=== PATIENT | male | born 1945 | race African-American/Black ===

== ENCOUNTER 2017-08-11 15:12 | Emergency (ER) | payer SELFPAY ==
--- NOTE | 2017-08-11 15:22 | ED Physician Documentation ---
General Adult - HISTORIAN Historian: patient - HPI Stated Complaint: sob Chief Complaint: General Adult Onset: hours Timing: still present Severity: moderate Further Comments: yes (Pt is a 71 yo male with dyspnea. Pt was sitting watching tv when he became sob. Pt had been admitted to [facility] on 07-29-17 for [place] with stent placement and renal failure. Pt was d/c'd from [facility] to [place] and d/c'd from [place] to home 6 days ago. Pt denied chest pain, n/v, diaphoresis. He c/o sob only.) - ROS CONST: no problems EYES/ENT: none CVS/RESP: shortness of breath GI/: none MS/SKIN/LYMPH: none - PAST HX Past History: CHF, other ([place] 07-29-17 with stent placement; HLD; anemia NOS; chronic renal insufficiency; hyperglycemia. ) Allergies/Adverse Reactions: Allergies Allergy/AdvReac Type Severity Reaction Status Date / Time No Known Allergies Allergy Verified 08/11/17 15:36 Home Medications: Ambulatory Orders Medication Instructions Recorded Aspirin [Tomasz] 81 mg PO DAILY 07/18/17 Atorvastatin Calcium 80 mg PO HS 08/11/17 Carvedilol [Coreg] 6.25 mg PO BID 08/11/17 Clopidogrel Bisulfate [Plavix] 75 mg PO QD 08/11/17 Ergocalciferol (Vitamin D2) 1,000 unit PO DAILY 08/11/17 [Vitamin D-2] Ergocalciferol (Vitamin D2) 50,000 unit PO WEEK 08/11/17 [Vitamin D2] - SOCIAL HX Smoking History: quit greater than 1 year (quit age 48) Alcohol Use: other (former heavy drinker) - FAMILY HX Family History: No - VITAL SIGNS Vital Signs: Vital Signs Temp Pulse Resp BP Pulse Ox 150/97 07/19/17 14:00 - REVIEWED ASSESSMENTS Nursing Assessment Reviewed: Yes Vitals Reviewed: Yes Progress - Progress Progress: CXR: Findings: Single view of the chest demonstrates a prominent cardiac and mediastinal silhouette. Bibasilar parenchymal haziness, right greater than left. Blunting of the bases bilaterally. Osseous structures are appropriate for age. Impression: Bibasilar infiltrate/effusions. Cardiomegaly. Duoneb HFN in ER Pt much improved and comfortable after starting 3L NC O2 and after Duoneb. Freqent PVC's resolved. d/w pcp. Treatment with lasix has been unsuccessful in past--raised creatinine and did not diurese pt. Transfer to [facility] cardiology Dr. Hernandez. - EKG/XRAY/CT EKG: NSR (HR=96; PVC's, artifact) ED Results Lab/Radiology - Orders Orders: ED Orders Category Date Time Status Continuous EKG monitoring Q30M Care 08/11/17 15:14 Active Continuous Pulse Oximetry Q30M Care 08/11/17 15:[address] IV Lock 1T Care 08/11/17 15:14 Active CHEST 1 VIEW [RAD] Stat Exams 08/11/17 15:14 Ordered CBC/PLATELET/DIFF Routine Lab 08/11/17 15:14 Ordered CKMB Stat Lab 08/11/17 Ordered CMP Routine Lab 08/11/17 15:14 Ordered CREATINE KINASE Routine Lab 08/11/17 15:14 Ordered D DIMER Stat Lab 08/11/17 Ordered NT-proBNP Stat Lab 08/11/17 Ordered TROPONIN I (cTnI) Stat Lab 08/11/17 Ordered Oxygen Daily Oxygen 08/11/17 15:15 Ordered EKG WITH COMPARISON Stat Ther 08/11/17 15:14 Ordered General Adult Physical Exam - PHYSICAL EXAM GENERAL APPEARANCE: moderate distress EENT: pharynx normal NECK: normal inspection, supple RESPIRATORY: wheezes, rales, other (prolonged expiratory phase) CVS: frequent extrasystoles ABDOMEN: soft, no organomegaly, normal bowel sounds BACK: normal inspection, no CVA tenderness SKIN: warm/dry, normal color EXTREMITIES: non-tender, normal range of motion, no edema NEURO: oriented X3, motor nml, sensation nml Discharge Clincal Impression: Bibasilar infiltrates/effusions, Chronic renal insufficiency, stage III ( moderate), Troponin elevated above normal range Congestive heart failure Qualifiers: Congestive heart failure type: unspecified congestive heart failure type Congestive heart failure chronicity: unspecified congestive heart failure chronicity Qualified Code(s): I50.9 - Heart failure, unspecified Referrals: Primary Doctor,No [Primary Care Provider] - Condition: Stable Disposition: XFER [facility] Decision to Admit: NO Decision Time: 16:41
[2017-08-11] MEDS ORDERED: IPRATROPIUM/ALBUTEROL SULFATE 3 ML AMPUL.NEB NEB ONE (15:28)
[2017-08-11 15:31] LABS: BASOPHILS % 0.6 (0.0-1.5); EOSINOPHILS % 6.7 % (0.0-6.8); MEAN CORPUSCULAR HEMOGLOBIN 28.8 pg (28.0-34.0); MEAN CORPUSCULAR VOLUME 94.5 fl (80.0-100.0); MONOCYTES % 6.6 % (0.0-11.0); NEUTROPHILS # 4.4 # k/uL (1.4-7.7)
--- NOTE | 2017-08-11 16:03 | Diagnostic Imaging Report ---
JIA GRACE [facility] [address] [facility] [address] [place] [address]. [id number] Report Submission Date: Aug 11, 2017 3:46:17 PM [employer]ANCE SALES EXECUTIVE Patient Study Name: FÁTIMA BYNUM Date: Aug 11, 2017 3:27:54 PM [employer]ANCE SALES EXEC[employer]IVE Modality Type: CR Gender: M Description: CHEST : 41 Institution: [facility] Physician: JIA GRACE Examination: Portable chest History: Chest discomfort Comparison exam: 19 July 2017 Findings: Single view of the chest demonstrates a prominent cardiac and mediastinal silhouette. Bibasilar parenchymal haziness, right greater than left. Blunting of the bases bilaterally. Osseous structures are appropriate for age. Impression: Bibasilar infiltrate/effusions. Cardiomegaly. Electronically signed on Aug 11, 2017 3:46:17 PM INSURANCE SALES EXECUTIVE by: Joselito ALCOCER
[2017-08-11 18:17] VITALS: BP 138/91
== END 2017-08-11 18:12 | disposition short-term general hospital (02) ==
LOC: ED 15:12
DX: I50.9 Heart failure, unspecified (principal)
CPT/HCPCS: 71010; 80053; 82550; 82553; 83880; 84484; 85025; 85379; 94640; 94760; 99283; S1016

== ENCOUNTER 2017-08-18 13:57 | Outpatient (CLI) | payer SELFPAY ==
[2017-08-18 14:17] LABS: BASOPHILS % 0.6 (0.0-1.5); EOSINOPHILS % 8.4 % (0.0-6.8); MEAN CORPUSCULAR HEMOGLOBIN 28.8 pg (28.0-34.0); MEAN CORPUSCULAR VOLUME 92.6 fl (80.0-100.0); MONOCYTES % 7.3 % (0.0-11.0); NEUTROPHILS # 3.2 # k/uL (1.4-7.7)
[2017-08-18 14:35] LABS: eGFR (African) 24; eGFR (Non-African) 20
== END 2017-08-18 14:00 ==
LOC: LAB 13:57
PROVIDERS: ATTEND Family Medicine
DX: N17.9 Acute kidney failure, unspecified (principal); N18.4 Chronic kidney disease, stage 4 (severe); D64.9 Anemia, unspecified; R73.9 Hyperglycemia, unspecified
CPT/HCPCS: 36415; 80048; 83036; 85025

== ENCOUNTER 2017-09-08 14:05 | Outpatient (CLI) | payer OTHER ==
[2017-09-08 14:26] LABS: BASOPHILS % 0.2 (0.0-1.5); EOSINOPHILS % 4.2 % (0.0-6.8); MEAN CORPUSCULAR HEMOGLOBIN 28.5 pg (28.0-34.0); MEAN CORPUSCULAR VOLUME 99.6 fl (80.0-100.0); NEUTROPHILS # 2.8 # k/uL (1.4-7.7)
[2017-09-08 14:49] LABS: eGFR (African) 30; eGFR (Non-African) 25
== END 2017-09-08 14:06 ==
LOC: LAB 14:05
PROVIDERS: ATTEND Family Medicine
DX: N28.9 Disorder of kidney and ureter, unspecified (principal)
CPT/HCPCS: 36415; 80048; 85025

== ENCOUNTER 2017-09-23 14:33 | Outpatient (CLI) | payer OTHER | END 2017-09-23 14:35 | LOC: NEPHRO 14:33 | PROVIDERS: ATTEND Internal Medicine Nephrology | DX: I10 Essential (primary) hypertension (principal); E11.9 Type 2 diabetes mellitus without complications; I50.9 Heart failure, unspecified; I25.10 Atherosclerotic heart disease of native coronary artery without angina pectoris; N18.9 Chronic kidney disease, unspecified; N17.9 Acute kidney failure, unspecified | CPT/HCPCS: 99213 ==

== ENCOUNTER 2017-09-24 08:06 | Outpatient (CLI) | payer OTHER ==
[2017-09-24 09:29] LABS: eGFR (African) 33; eGFR (Non-African) 27
[2017-09-24 18:02] LABS: BASO % 0.5 % (0.0-1.5); EOS % 4.6 % (0.0-6.8); LYMPH ABS # 0.83 thou/uL (0.60-4.00); MCH. 28.8 pg (28.0-34.0); MCV 94.6 fL (80.0-100.0); MONOCYTE % 8.2 % (0.0-11.0); MONOCYTE ABS # 0.36 thou/uL (0.00-0.90); PLATELET COUNT 295 thou/uL (130-400)
== END 2017-09-24 08:07 ==
LOC: LAB 08:06
PROVIDERS: ATTEND Internal Medicine Nephrology
DX: I10 Essential (primary) hypertension (principal); E11.9 Type 2 diabetes mellitus without complications; I50.9 Heart failure, unspecified; I25.10 Atherosclerotic heart disease of native coronary artery without angina pectoris; N18.9 Chronic kidney disease, unspecified; N17.9 Acute kidney failure, unspecified
CPT/HCPCS: 36415; 80053; 83036; 83970; 84100; 85025

== ENCOUNTER 2017-09-30 12:28 | Outpatient (CLI) | payer OTHER | END 2017-09-30 12:40 | LOC: CARD 12:28 | PROVIDERS: ATTEND Internal Medicine Cardiovascular Disease | DX: R00.0 Tachycardia, unspecified (principal); I10 Essential (primary) hypertension; E78.5 Hyperlipidemia, unspecified; E11.9 Type 2 diabetes mellitus without complications; N18.4 Chronic kidney disease, stage 4 (severe); I42.9 Cardiomyopathy, unspecified | CPT/HCPCS: 99213 ==

== ENCOUNTER 2017-09-30 14:06 | Emergency (ER) | payer OTHER ==
--- NOTE | 2017-09-30 14:32 | ED Physician Documentation ---
General Adult - HISTORIAN Historian: patient - HPI Chief Complaint: General Adult Additional Information: 71yo male who was seen by Dr Stover today for follow-up of his CAD. Patient has been feeling well and voices not complaints. Patient was noted to have tachycardia in the 140s. EKG show some questionable p waves. Rate has been constant at 138-141 for several hours. Patient was sent to the ED for further evaluation and treatment. Onset: other (not sure) Timing: still present Severity: mild - ROS CONST: no problems. denies: fever, chills - PAST HX Past History: CHF, other (CAD, EDUCATIONAL INTERPRETER vasculitis) Other History: other (CKD stage 4) Surgeries/Procedures: none (brain bx for EDUCATIONAL INTERPRETER vasculitis, PCI with stint) Immunizations: referred to PCP Allergies/Adverse Reactions: Allergies Allergy/AdvReac Type Severity Reaction Status Date / Time No Known Allergies Allergy Verified 09/30/17 15:48 Home Medications: Ambulatory Orders Medication Instructions Recorded Aspirin [Tomasz] 81 mg PO DAILY 07/18/17 Atorvastatin Calcium 80 mg PO HS 08/11/17 Carvedilol [Coreg] 12.5 mg PO BID 08/11/17 Clopidogrel Bisulfate [Plavix] 75 mg PO QD 08/11/17 Ergocalciferol (Vitamin D2) 50,000 unit PO WEEKLY AT 0600 08/11/17 [Vitamin D-2] - SOCIAL HX Smoking History: non-smoker Alcohol Use: none Drug Use: none - FAMILY HX Family History: Yes (CAD siblings) - VITAL SIGNS Vital Signs: Vital Signs Temp Pulse Resp BP Pulse Ox 138/91 08/11/17 18:12 - REVIEWED ASSESSMENTS Nursing Assessment Reviewed: Yes Vitals Reviewed: Yes Progress - Progress Progress: Patient was given adenosine 6mg with conversion to NSR at rate of 85 with occasional PAC. Post conversion BP improved to 160/70. - EKG/XRAY/CT Comments: possible junctional tachycardia. Although may be sinus General Adult Physical Exam - PHYSICAL EXAM GENERAL APPEARANCE: no distress EENT: ENT inspection normal RESPIRATORY: no resp distress, chest non-tender, breath sounds normal. No: wheezes, rales CVS: heart sounds normal, equal pulses, no murmur, tachycardia (140) ABDOMEN: soft, no organomegaly, normal bowel sounds, no abdominal bruit BACK: normal inspection SKIN: warm/dry, normal color EXTREMITIES: non-tender, normal range of motion. No: no edema NEURO: oriented X3, cognition normal Discharge Clincal Impression: Supraventricular arrhythmia, CKD (chronic kidney disease) stage 4, GFR 15-29 ml /min Anemia Qualifiers: Anemia type: other cause Other causes of anemia: chronic disease, other Qualified Code(s): D63.8 - Anemia in other chronic diseases classified elsewhere Referrals: Damian Bustillo MD [Primary Care Provider] - 2 Days Additional Instructions: Home and rest tonight. Do not take in any caffeine or cough cold medications. Check your pulse twice a day. Follow-up with Dr Bustillo in one to two weeks. Increase carvedilol to 12.5mg twice a day (two tablets twice a day). Condition: Stable Disposition: 01 HOME, SELF-CARE Decision to Admit: [id number] Date of Decison to Admit: 09/30/17 Decision Time: 15:36
[2017-09-30] MEDS ORDERED: ADENOSINE 6 MG/2 ML VIAL IVP ONE (14:46)
[2017-09-30 15:19] LABS: MEAN CORPUSCULAR HEMOGLOBIN 29.6 pg (28.0-34.0); MEAN CORPUSCULAR VOLUME 93.2 fl (80.0-100.0)
[2017-09-30 16:24] VITALS: BP 161/94
== END 2017-09-30 16:00 | disposition home or self-care (01) ==
LOC: ED 14:06
DX: I47.1 Supraventricular tachycardia (principal); I25.10 Atherosclerotic heart disease of native coronary artery without angina pectoris; N18.4 Chronic kidney disease, stage 4 (severe); D63.8 Anemia in other chronic diseases classified elsewhere
CPT/HCPCS: 80053; 84484; 85027; 85379; J0153; 96374; 99283; S1016

== ENCOUNTER 2017-10-14 14:14 | Outpatient (CLI) | payer OTHER | END 2017-10-14 14:15 | LOC: NEPHRO 14:14 | PROVIDERS: ATTEND Internal Medicine Nephrology | DX: I10 Essential (primary) hypertension (principal); E11.9 Type 2 diabetes mellitus without complications; I50.9 Heart failure, unspecified; I25.10 Atherosclerotic heart disease of native coronary artery without angina pectoris; N18.9 Chronic kidney disease, unspecified; N17.9 Acute kidney failure, unspecified | CPT/HCPCS: 99213 ==

== ENCOUNTER 2017-11-11 10:49 | Outpatient (CLI) | payer OTHER ==
[2017-11-11 13:22] LABS: eGFR (Non-African) 27
== END 2017-11-11 10:50 ==
LOC: CARD 10:49
PROVIDERS: ATTEND Internal Medicine Cardiovascular Disease
DX: I42.9 Cardiomyopathy, unspecified (principal); G45.9 Transient cerebral ischemic attack, unspecified; I50.9 Heart failure, unspecified; I27.0 Primary pulmonary hypertension; I63.9 Cerebral infarction, unspecified; I10 Essential (primary) hypertension; E78.5 Hyperlipidemia, unspecified; E11.9 Type 2 diabetes mellitus without complications; N18.4 Chronic kidney disease, stage 4 (severe)
CPT/HCPCS: 36415; 80048; 99213

== ENCOUNTER 2017-11-17 09:43 | Outpatient (CLI) | payer OTHER | END 2017-11-17 09:44 | LOC: RT 09:43 | PROVIDERS: ATTEND Internal Medicine Cardiovascular Disease | DX: I25.5 Ischemic cardiomyopathy (principal); I47.1 Supraventricular tachycardia | CPT/HCPCS: 94761 ==

== ENCOUNTER 2017-11-21 10:26 | Outpatient (CLI) | payer OTHER ==
[2017-11-21 11:58] LABS: eGFR (African) 36; eGFR (Non-African) 30
[2017-11-21 12:02] LABS: BASOPHILS % 0.2 (0.0-1.5); MEAN CORPUSCULAR HEMOGLOBIN 27.7 pg (28.0-34.0); MEAN CORPUSCULAR VOLUME 94.6 fl (80.0-100.0); MONOCYTES % 7.6 % (0.0-11.0); NEUTROPHILS # 2.9 # k/uL (1.4-7.7)
== END 2017-11-21 10:28 ==
LOC: LAB 10:26
PROVIDERS: ATTEND Internal Medicine Nephrology
DX: I50.9 Heart failure, unspecified (principal); I25.10 Atherosclerotic heart disease of native coronary artery without angina pectoris; I12.9 Hypertensive chronic kidney disease with stage 1 through stage 4 chronic kidney disease, or unspecified chronic kidney disease; N17.9 Acute kidney failure, unspecified; N18.9 Chronic kidney disease, unspecified; E08.22 Diabetes mellitus due to underlying condition with diabetic chronic kidney disease
CPT/HCPCS: 36415; 80053; 85025

== ENCOUNTER 2017-11-25 14:24 | Outpatient (CLI) | payer OTHER | END 2017-11-25 14:25 | LOC: NEPHRO 14:24 | PROVIDERS: ATTEND Internal Medicine Nephrology | DX: I50.9 Heart failure, unspecified (principal); N18.9 Chronic kidney disease, unspecified; N17.9 Acute kidney failure, unspecified | CPT/HCPCS: 99213 ==

== ENCOUNTER 2017-12-03 18:50 | Emergency (ER) | payer MEDICARE, OTHER ==
[2017-12-03] MEDS ORDERED: IPRATROPIUM/ALBUTEROL SULFATE 3 ML AMPUL.NEB NEB ONE (18:52)
[2017-12-03] MEDS ORDERED: IPRATROPIUM/ALBUTEROL SULFATE 3 ML AMPUL.NEB NEB STA (18:57)
[2017-12-03 19:14] LABS: BASOPHILS % 0.1 (0.0-1.5); EOSINOPHILS % 3.4 % (0.0-6.8); MEAN CORPUSCULAR VOLUME 93.7 fl (80.0-100.0); MONOCYTES % 4.9 % (0.0-11.0); NEUTROPHILS # 5.4 # k/uL (1.4-7.7)
--- NOTE | 2017-12-03 20:15 | ED Physician Documentation ---
Dyspnea - HISTORIAN Historian: patient, spouse - HPI Stated Complaint: SOA Chief Complaint: Dyspnea Onset: days ago Duration: worse (this afternoon) Severity: moderate Exacerbated By: exertion, laying flat Associated Symptoms: none. denies: chills, fever Further Comments: yes (71 year old male patient brought in by his family for worsening dyspnea. states patient has been SOB since coming home from the hospital; states became significantly SOB just COURT [employer].) - ROS CONST: recent illness EYES/ENT: none GI/: none NEURO/PSYCH: denies: headache MS/SKIN/LYMPH: none - PAST HX Lung Disease: none Cardiac Disease: CHF, CAD, AMI (NSTEMI) PE Risk Factors: hypertension, leg swelling Surgeries/Procedures: cardiac cath Other History: diabetes Type 2, kidney failure (Stage 3-4), other (anemia, PATIENT SERVICE REPRESENTATIVE Vasculitis, CVA, hyperparathyroidism, ) Allergies/Adverse Reactions: Allergies Allergy/AdvReac Type Severity Reaction Status Date / Time No Known Allergies Allergy Verified 12/03/17 19:20 Home Medications: Ambulatory Orders Medication Instructions Recorded Aspirin [Tomasz] 81 mg PO DAILY 07/18/17 Atorvastatin Calcium 80 mg PO HS 08/11/17 Carvedilol [Coreg] 12.5 mg PO BID 08/11/17 Clopidogrel Bisulfate [Plavix] 75 mg PO QD 08/11/17 Ergocalciferol (Vitamin D2) 50,000 unit PO WEEKLY AT 0600 08/11/17 [Vitamin D-2] - SOCIAL HX Smoking History: non-smoker - FAMILY HX Family History: none - VITAL SIGNS Vital Signs: Vital Signs Temp Pulse Resp BP Pulse Ox 98.4 F 72 22 154/84 91 L 12/03/17 18:50 12/03/17 18:50 12/03/17 18:50 12/03/17 18:50 12/03/17 18:50 - REVIEWED ASSESSMENTS Nursing Assessment Reviewed: Yes Vitals Reviewed: Yes Progress - Progress Progress: Old records reviewed. Patient seen by Dr Billy on 11/25. Weight 95KG. Todays weight 106kg. Reviewed xray and lab results reviewed with patient and family; recommended transfer to [facility] for cardiology and nephrology consult. 2014 Call to [facility] - patient accepted by Dr Hay. Agrees with IV diuretic. - EKG/XRAY/CT EKG: rhythm (Sr, rate 65) ED Results Lab/Radiology - Lab Results Lab Results: Lab Results 12/03/17 12/03/17 12/03/17 19:10 19:10 19:10 WBC 6.70 K/ul K/ul (4.00-12.00) RBC 3.19 M/ul L M/ul (3.90-5.20) Hgb 8.9 g/dL L g/dL (12.0-18.0) Hct 29.9 % L % (37.0-53.0) MCV 93.7 fl fl (80.0-100.0) MCH 28.0 pg pg (28.0-34.0) MCHC 29.9 g/dL L g/dL (30.0-36.0) RDW 18.1 % H % (11.3-14.3) Plt Count 259 K/mm3 K/mm3 (130-400) Neut % (Auto) 81.6 % H % (39.0-79.0) Lymph % (Auto) 9.1 % L % (16.0-50.0) [place] % (Auto) 4.9 % % (0.0-11.0) Eos % (Auto) 3.4 % % (0.0-6.8) Baso % (Auto) 0.1 (0.0-1.5) Neut # (Auto) 5.4 # k/uL # k/uL (1.4-7.7) Lymph # (Auto) 0.6 # k/uL # k/uL (0.6-4.0) [place] # (Auto) 0.3 # k/uL # k/uL (0.0-0.9) Eos # (Auto) 0.2 # k/uL # k/uL (0.0-0.6) Baso # (Auto) 0.0 # k/uL # k/uL (0.0-0.5) Reactive Lymphs % 0.9 % % (0.0-5.0) Reactive Lymphs # 0.1 # k/uL # k/uL (0.0-0.8) Sodium 146 mmol/L H mmol/L (136-145) Potassium 3.7 mmol/L mmol/L (3.5-5.1) Chloride 113 mmol/L H mmol/L (98-107) Carbon Dioxide 23 mmol/L mmol/L (22-30) BUN 31 mg/dL H mg/dL (9-20) Creatinine 2.40 mg/dL H mg/dL (0.66-1.25) Estimated Creat Clear 34 Est GFR ( Amer) 34 L (60 - ) Est GFR (Non-Af Amer) 28 L (60 - ) Glucose 131 mg/dL H mg/dL (74-106) Calcium 8.3 mg/dL L mg/dL (8.4-10.2) Total Bilirubin 1.3 mg/dL mg/dL (0.2-1.3) AST 20 U/L U/L (15-46) ALT 21 U/L U/L (13-69) Alkaline Phosphatase 123 U/L U/L (38-126) Troponin I < 0.03 ng/mL L ng/mL (0.03-0.06) NT-Pro-B Natriuret Pep > 43461.0 pg/mL H pg/mL (15.0-125.0) Total Protein 6.4 g/dL g/dL (6.3-8.2) Albumin 3.0 g/dL L g/dL (3.5-5.0) - Radiology Radiology Impressions: Chest, PA and lateral HISTORY Cough, shortness of breath. FINDINGS Bilateral pleural effusions are present. Bilateral lower lobe infiltrates are also present. The heart is enlarged. Pulmonary vascularity is normal. There is no pneumothorax. IMPRESSION Bilateral pleural effusions and bilateral lower lobe infiltrates. Electronically signed on December 03, 2017 7:28:19 PM CDT by: Chance Rosa - Orders Orders: ED Orders Category Date Time Status Continuous EKG monitoring Q30M Care 12/03/17 18:57 Active Continuous Pulse Oximetry Q30M Care 12/03/17 18:57 Active CHEST 2VIEW [RAD] Stat Exams 12/03/17 18:57 Ordered CBC/PLATELET/DIFF Stat Lab 12/03/17 19:10 Completed CMP Stat Lab 12/03/17 19:10 Completed NT-proBNP Stat Lab 12/03/17 19:10 Completed TROPONIN I (cTnI) Stat Lab 12/03/17 19:10 Completed Ipratropium/Albuterol Sulfate [Duoneb] Med 12/03/17 18:52 Discontinued 3 ml NEB .STK-MED ONE Ipratropium/Albuterol Sulfate [Duoneb] Med 12/03/17 18:57 Discontinued 3 ml NEB STAT STA EKG WITH COMPARISON Stat Ther 12/03/17 18:57 Ordered Dyspnea Physical Exam - EXAM General Appearance: moderate distress EENT: eye inspection normal, ENT inspection normal, pharynx normal, no signs of dehydration, GAIL, no nystagmus, TM's nml Respiratory: no pain on inspiration, speaks full sentences, decreased air movement (significantly decreased in bases; crackles bilateral upper lobes), wheezes (faint expiratory), other (RA Sat 89-90% on arrival) CVS: reg. rate & rhythm, no gallop, no friction rub, pulses full, pulses equal, murmur Abdomen: non-tender, no organomegaly, no distention, no ascites Skin: color nml, no rash, warm, nml palp., dry Extremities: edema (3+ bilateral lower extremities; left arm with 1+ edema) Neuro/Psych: oriented x3, CN's nml as tested, motor nml, sensation nml, mood/ affect nml Discharge Clincal Impression: Congestive heart failure Qualifiers: Heart failure type: combined systolic and diastolic Heart failure chronicity: acute Qualified Code(s): I50.41 - Acute combined systolic (congestive) and diastolic (congestive) heart failure CKD (chronic kidney disease) Qualifiers: Chronic kidney disease stage: stage 4 (severe) Qualified Code(s): N18.4 - Chronic kidney disease, stage 4 (severe) Referrals: Damian Bustillo MD [Primary Care Provider] - 2 Days Condition: Serious Disposition: 02 [facility]FER [facility] Decision to Admit: NO Decision Time: 20:27
[2017-12-03] MEDS ORDERED: FUROSEMIDE 40 MG/4 ML VIAL IVP ONE (20:17)
[2017-12-03 23:25] VITALS: BP 146/75
--- NOTE | 2017-12-04 00:52 | Diagnostic Imaging Report ---
Name: FÁTIMA BYNUM : 41 Acc #: [id number] DOS: December 03, 2017 7:12:31 PM CDT Mod: DX Desc: CHEST 1 of 1 RADHA RIOS (TARGET DEVELOPER) - ER [address] [id number] Report Submission Date: December 03, 2017 7:28:19 PM CDT Patient Study Name: FÁTIMA BYNUM Date: December 03, 2017 7:12:31 PM CDT Modality Type: DX Gender: M Description: CHEST : 41 Institution: [facility] Physician: RADHA RIOS (TARGET DEVELOPER) - ER Chest, PA and lateral HISTORY Cough, shortness of breath. FINDINGS Bilateral pleural effusions are present. Bilateral lower lobe infiltrates are also present. The heart is enlarged. Pulmonary vascularity is normal. There is no pneumothorax. IMPRESSION Bilateral pleural effusions and bilateral lower lobe infiltrates. Electronically signed on December 03, 2017 7:28:19 PM CDT by: Chance ALCOCER
== END 2017-12-03 21:05 | disposition short-term general hospital (02) ==
LOC: ED 18:50
DX: I50.41 Acute combined systolic (congestive) and diastolic (congestive) heart failure (principal); N18.4 Chronic kidney disease, stage 4 (severe)
CPT/HCPCS: 71046; 80053; 83880; 84484; 85025; J1940; 94640; 96374; 99285; S1016

== ENCOUNTER 2017-12-09 14:04 | Outpatient (CLI) | payer SELFPAY | END 2017-12-09 14:06 | LOC: OUT 14:04 | PROVIDERS: ATTEND Internal Medicine Nephrology | DX: N17.9 Acute kidney failure, unspecified (principal); N18.9 Chronic kidney disease, unspecified; I50.9 Heart failure, unspecified | CPT/HCPCS: 99213 ==

== ENCOUNTER 2017-12-29 08:21 | Outpatient (CLI) | payer OTHER ==
[2017-12-29 09:35] LABS: eGFR (African) 31; eGFR (Non-African) 26
== END 2017-12-29 08:22 ==
LOC: LAB 08:21
PROVIDERS: ATTEND Internal Medicine Nephrology
DX: N17.9 Acute kidney failure, unspecified (principal); N18.9 Chronic kidney disease, unspecified; I50.9 Heart failure, unspecified
CPT/HCPCS: 36415; 80053

== ENCOUNTER 2017-12-30 14:26 | Outpatient (CLI) | payer OTHER | END 2017-12-30 14:28 | LOC: NEPHRO 14:26 | PROVIDERS: ATTEND Internal Medicine Nephrology | DX: N18.4 Chronic kidney disease, stage 4 (severe) (principal); I50.9 Heart failure, unspecified; N17.9 Acute kidney failure, unspecified; E11.9 Type 2 diabetes mellitus without complications | CPT/HCPCS: 99213 ==

== ENCOUNTER 2018-01-12 08:22 | Outpatient (CLI) | payer OTHER | END 2018-01-12 08:23 | LOC: LAB 08:22 | PROVIDERS: ATTEND Internal Medicine Nephrology | DX: N18.9 Chronic kidney disease, unspecified (principal); I50.9 Heart failure, unspecified | CPT/HCPCS: 36415; 80053 ==

== ENCOUNTER 2018-01-13 13:57 | Outpatient (CLI) | payer OTHER | END 2018-01-13 14:00 | LOC: NEPHRO 13:57 | PROVIDERS: ATTEND Internal Medicine Nephrology | DX: N18.9 Chronic kidney disease, unspecified (principal); I50.9 Heart failure, unspecified | CPT/HCPCS: 99213 ==

== ENCOUNTER 2018-01-26 08:53 | Outpatient (CLI) | payer OTHER ==
[2018-01-26 09:40] LABS: eGFR (African) 33; eGFR (Non-African) 27
[2018-01-27 05:21] LABS: PROTEIN mg/dL 201 mg/dL
== END 2018-01-26 08:54 ==
LOC: LAB 08:53
PROVIDERS: ATTEND Internal Medicine Nephrology
DX: N18.9 Chronic kidney disease, unspecified (principal); I50.9 Heart failure, unspecified
CPT/HCPCS: 36415; 80053; 82570; 84156

== ENCOUNTER 2018-01-27 11:08 | Outpatient (CLI) | payer OTHER | END 2018-01-27 11:10 | LOC: CARD 11:08 | PROVIDERS: ATTEND Internal Medicine Cardiovascular Disease | DX: I42.9 Cardiomyopathy, unspecified (principal); I50.9 Heart failure, unspecified; R00.0 Tachycardia, unspecified; I51.9 Heart disease, unspecified; I27.0 Primary pulmonary hypertension; I10 Essential (primary) hypertension; E78.5 Hyperlipidemia, unspecified; E11.9 Type 2 diabetes mellitus without complications; N18.4 Chronic kidney disease, stage 4 (severe) | CPT/HCPCS: 99213 ==

== ENCOUNTER 2018-02-10 13:31 | Outpatient (CLI) | payer OTHER | END 2018-02-10 13:40 | LOC: NEPHRO 13:31 | PROVIDERS: ATTEND Internal Medicine Nephrology | DX: N18.9 Chronic kidney disease, unspecified (principal); I50.9 Heart failure, unspecified | CPT/HCPCS: 99213 ==

== ENCOUNTER 2018-04-13 09:09 | Outpatient (CLI) | payer MEDICAID, OTHER ==
[2018-04-13 10:46] LABS: eGFR (Non-African) 24
[2018-04-13 11:45] LABS: APPEARANCE,URINE CLEAR (CLEAR); COLOR,URINE YELLOW (YELLOW); OCCULT BLOOD,URINE NEGATIVE (NEGATIVE); UROBILINOGEN URINE 0.2 Eu (0.2-1.0)
[2018-04-13 22:21] LABS: BASO % 0.6 % (0.0-1.5); LYMPH ABS # 0.54 thou/uL (0.60-4.00); MCH. 29.7 pg (28.0-34.0); MONOCYTE % 10.2 % (0.0-11.0); MONOCYTE ABS # 0.35 thou/uL (0.00-0.90); PLATELET COUNT 251 thou/uL (130-400)
[2018-04-14 04:31] LABS: PROTEIN mg/dL 361 mg/dL
== END 2018-04-13 09:15 ==
LOC: LAB 09:09
PROVIDERS: ATTEND Internal Medicine Nephrology
DX: N18.9 Chronic kidney disease, unspecified (principal); I50.9 Heart failure, unspecified
CPT/HCPCS: 36415; 80053; 81002; 85025

== ENCOUNTER 2018-04-21 14:38 | Outpatient (CLI) | payer OTHER | END 2018-04-21 14:40 | LOC: NEPHRO 14:38 | PROVIDERS: ATTEND Internal Medicine Nephrology | DX: N18.9 Chronic kidney disease, unspecified (principal); I50.9 Heart failure, unspecified | CPT/HCPCS: 99213 ==

== ENCOUNTER 2018-06-16 14:29 | Outpatient (CLI) | payer OTHER | END 2018-06-16 14:30 | LOC: NEPHRO 14:29 | PROVIDERS: ATTEND Internal Medicine Nephrology | DX: E11.22 Type 2 diabetes mellitus with diabetic chronic kidney disease (principal); I12.9 Hypertensive chronic kidney disease with stage 1 through stage 4 chronic kidney disease, or unspecified chronic kidney disease; N18.3 Chronic kidney disease, stage 3 (moderate); N17.9 Acute kidney failure, unspecified; D64.9 Anemia, unspecified; N25.81 Secondary hyperparathyroidism of renal origin | CPT/HCPCS: G0463 ==

== ENCOUNTER 2018-09-07 07:46 | Outpatient (CLI) | payer OTHER ==
[2018-09-07 08:11] LABS: APPEARANCE,URINE CLEAR (CLEAR); COLOR,URINE YELLOW (YELLOW)
[2018-09-07 08:12] LABS: OCCULT BLOOD,URINE TRACE-INTACT (NEGATIVE); PH URINE 5.5 (5.0 - 8.0); UROBILINOGEN URINE 0.2 Eu (0.2-1.0)
[2018-09-07 08:40] LABS: eGFR (Non-African) 23
[2018-09-07 09:35] LABS: MEAN CORPUSCULAR HEMOGLOBIN 29.6 pg (28.0-34.0)
[2018-09-07 09:36] LABS: BASOPHILS % 0.1 (0.0-1.5); EOSINOPHILS % 4.8 % (0.0-6.8); MONOCYTES % 7.7 % (0.0-11.0); NEUTROPHILS # 2.7 # k/uL (1.4-7.7)
== END 2018-09-07 07:48 ==
LOC: LAB 07:46
PROVIDERS: ATTEND Internal Medicine Nephrology
DX: I12.9 Hypertensive chronic kidney disease with stage 1 through stage 4 chronic kidney disease, or unspecified chronic kidney disease (principal); I11.0 Hypertensive heart disease with heart failure; N18.9 Chronic kidney disease, unspecified; I50.9 Heart failure, unspecified; E11.8 Type 2 diabetes mellitus with unspecified complications
CPT/HCPCS: 36415; 80053; 81002; 84100; 85025

== ENCOUNTER 2018-09-15 09:46 | Outpatient (CLI) | payer OTHER | END 2018-09-15 09:48 | LOC: NEPHRO 09:46 | PROVIDERS: ATTEND Internal Medicine Nephrology | DX: I12.9 Hypertensive chronic kidney disease with stage 1 through stage 4 chronic kidney disease, or unspecified chronic kidney disease (principal); E11.22 Type 2 diabetes mellitus with diabetic chronic kidney disease; N18.3 Chronic kidney disease, stage 3 (moderate); D63.1 Anemia in chronic kidney disease | CPT/HCPCS: 99213 ==

== ENCOUNTER 2018-11-04 17:33 | Emergency (ER) | payer OTHER ==
[2018-11-04 17:47] VITALS: BP 121/62
--- NOTE | 2018-11-04 19:25 | ED Physician Documentation ---
Shoulder Injury/Pain - HPI Stated Complaint: Bilateral Shoulder Pain Chief Complaint: Shoulder Injury/ Pain Additional Information: Patient presents to ED with a 2 day history of right shoulder pain. He denies injury. Patient has been putting bengay on it. Onset: yesterday Where: home Severity: mild Pain: persistent Context: other (no injury) Associated Symptoms: denies: weakness - ROS CONST: no problems CVS/RESP: none GI/: denies: nausea, vomiting MS/SKIN/LYMPH: none NEURO: none - PAST HX Past History: Rt handed Allergies/Adverse Reactions: Allergies Allergy/AdvReac Type Severity Reaction Status Date / Time No Known Allergies Allergy Verified 11/04/18 17:47 Home Medications: Ambulatory Orders Medication Instructions Recorded Aspirin [Tomasz] 81 mg PO DAILY 07/18/17 Tizanidine HCl [Zanaflex] 2 mg PO BID PRN #12 capsule 11/04/18 amLODIPine BESYLATE [Norvasc] 1 tab PO DAILY 11/04/18 - SOCIAL HX Smoking History: cigarettes Alcohol Use: none Drug Use: none - FAMILY HX Family History: none - VITAL SIGNS Vital Signs: Vital Signs Temp Pulse Resp BP Pulse Ox 62 15 121/62 98 11/04/18 17:40 11/04/18 17:40 11/04/18 17:40 11/04/18 17:40 - REVIEWED ASSESSMENT Nursing Assessment Reviewed: Yes Vitals Reviewed: Yes ED Results Lab/Radiology - Orders Orders: ED Orders Category Date Time Status Cyclobenzaprine HCl [Flexeril] Med 11/04/18 19:26 Discontinued 10 mg PO NOW ONE Shoulder Injury Physical Exam - Physical Exam General Appearance: no acute distress, alert Shoulder: soft-tissue tenderness (upper trapezius) Upper Extremity: no injury below shoulder Neuro: sensation nml Vascular: no vascular compromise Skin: warm/dry Head/ENT: nml inspection Respiratory: chest non-tender, breath sounds nml CVS: reg rate & rhythm, heart sounds normal Abdomen: soft, normal bowel sounds Discharge Clincal Impression: Strain of right trapezius muscle Qualifiers: Encounter type: initial encounter Qualified Code(s): S46.811A - Strain of other muscles, fascia and tendons at shoulder and upper arm level, right arm, initial encounter Prescriptions: Tizanidine HCl [Zanaflex] 2 mg PO BID PRN #12 capsule PRN Reason: right shoulder pain/spasm Referrals: Damian Bustillo MD [Primary Care Provider] - 2 Days Condition: Stable Disposition: HOME, SELF-CARE Decision to Admit: NO Date of Decison to Admit: 11/04/18 Decision Time: 19:34
[2018-11-04] MEDS ORDERED: CYCLOBENZAPRINE HCL 10 MG TABLET PO ONE (19:26)
== END 2018-11-04 19:54 | disposition home or self-care (01) ==
LOC: ED 17:33
DX: S46.811A Strain of other muscles, fascia and tendons at shoulder and upper arm level, right arm, initial encounter (principal); X58.XXXA Exposure to other specified factors, initial encounter
CPT/HCPCS: 99283

== ENCOUNTER 2018-11-09 09:04 | Outpatient (CLI) | payer OTHER ==
[2018-11-09 09:29] LABS: MONOCYTES % 8.1 % (0.0-11.0)
[2018-11-09 09:30] LABS: BASOPHILS % 0.2 % (0.0-1.5); EOSINOPHILS % 3.5 % (0.0-6.8); NEUTROPHILS # 2.8 # k/uL (1.4-7.7)
[2018-11-09 09:46] LABS: APPEARANCE,URINE CLEAR (CLEAR); COLOR,URINE YELLOW (YELLOW); OCCULT BLOOD,URINE 1+ (NEGATIVE); UROBILINOGEN URINE 0.2 Eu (0.2-1.0)
[2018-11-09 10:08] LABS: eGFR (Non-African) 24
== END 2018-11-09 09:06 ==
LOC: LAB 09:04
PROVIDERS: ATTEND Internal Medicine Nephrology
DX: N18.9 Chronic kidney disease, unspecified (principal); E11.9 Type 2 diabetes mellitus without complications; I50.9 Heart failure, unspecified; D63.1 Anemia in chronic kidney disease; N25.81 Secondary hyperparathyroidism of renal origin; R80.9 Proteinuria, unspecified
CPT/HCPCS: 36415; 80053; 81002; 84100; 85025